=== PATIENT | male | born 1990 | race Two or more races ===

== ENCOUNTER 2020-11-13 16:19 | Inpatient (IN) ==
[2020-11-13] MEDS ORDERED: NS 0.9% 1000 ml BAG 1,000 ML IV ONE (19:26)
[2020-11-13] MEDS ORDERED: Ondansetron 4 mg VIAL 2 MG/ML 2 ml VIAL IV ONE (19:26)
[2020-11-13 20:05] LABS: Hematocrit 41 % (42-52); Mean Corpuscular HGB Conc 34 g/dL (31-36); Mean Corpuscular Hemoglobin 31 pg (27-31); Mean Corpuscular Volume 90 fL (80-94); Mean Platelet Volume 8.5 fL (7.4-10.4); Platelet Count 285 10^3/uL (150-450); Red Blood Count 4.59 10^6 /uL (4.18-5.48); Red Cell Distribution Width 12 % (10-15); White Blood Count 17.8 10^3/uL (3.5-10.8)
[2020-11-13 20:21] LABS: ALT 9 U/L (7-52); Albumin 4.1 g/dL (3.2-5.2); Albumin/Globulin Ratio 1.2 (1-3); Alkaline Phosphatase 103 U/L (34-104); BUN/Creatinine Ratio 15.1 (8-20); Blood Urea Nitrogen 11 mg/dL (6-24); C Reactive Protein 289.02 mg/L (<8.01); CO2 Carbon Dioxide 31 mmol/L (22-32); Calcium 9.3 mg/dL (8.6-10.3); Chloride 97 mmol/L (101-111); EGFR African American 153.7 (>60); Globulin 3.5 g/dL (2-4); Glucose 82 mg/dL (70-100); Lipase < 10 U/L (11.0-82.0); Sodium 133 mmol/L (135-145); Total Protein 7.6 g/dL (6.4-8.9)
[2020-11-13 20:45] LABS: ABS Eosinophils 0.1 10^3/ul (0-0.6); ABS Lymphocytes 1.3 10^3/ul (1.0-4.8); ABS Monocytes 2.3 10^3/ul (0-0.8); ABS Neutrophils 14.1 10^3/ul (1.5-7.7); Eosinophil % 0.3 %; Lymphocyte % 7.4 %
[2020-11-13 20:57] LABS: Anion Gap 5 mmol/L (2-11)
[2020-11-13] MEDS ORDERED: Iodixanol (CONTRAST) 320 MG/ML 100 ML SDV IV ONE (21:34)
[2020-11-13 21:59] LABS: Urine Appearance Clear; Urine Bilirubin Negative (Negative); Urine Blood Negative (Negative); Urine Color Yellow; Urine Glucose Negative (Negative); Urine Ketones Negative (Negative); Urine Nitrite Negative (Negative); Urine Protein Negative (Negative); Urine Specific Gravity 1.014 (1.002-1.030); Urine Urobilinogen Negative (Negative)
[2020-11-13] MEDS ORDERED: Morphine 4 MG/ML VIAL (1 ml) IV ONE (22:24)
[2020-11-13] MEDS ORDERED: Ciprofloxacin 400mg IVPREMIX 400 MG/200 ML BAG IVPB ONE (22:25)
[2020-11-13] MEDS ORDERED: metroNIDAZOLE IV 500 MG/100ML 500 MG/100 ML BAG IVPB ONE (22:30)
[2020-11-14] MEDS ORDERED: Lorazepam PYXIS KEY PRN (00:54)
[2020-11-14] MEDS ORDERED: LORazepam 2 mg VIAL 1 ml IV PUSH SCH (01:00)
[2020-11-14] MEDS ORDERED: Thiamine 100 MG/ML 2 ml VIAL 100 MG, Folic Acid IV 1 MG, Multiple Vitamin IV ADULT 10 M... IV ONE (02:00)
[2020-11-14] MEDS: HYDROmorphone 1 MG/1 ML SYRINGE IV SLOW PU PRN ×3 (03:05→15:30)
[2020-11-14] MEDS ORDERED: Midazolam 2 mg/2 ml VIAL 1 mg/ml 2 ml VIAL (2 mg) ONE (08:10)
[2020-11-14] MEDS ORDERED: fentaNYL 250 mcg/5 ml 50 MCG/ML 5 ml VIAL (250 MCG) ONE (08:10)
[2020-11-14] MEDS ORDERED: Rocuronium 50 mg VIAL 10 mg/ml 5 ml VIAL (50 mg) ONE ×2 (08:10→09:55)
[2020-11-14] MEDS ORDERED: Propofol 10 MG/ML 20 ML BTL ONE (08:10)
[2020-11-14] MEDS ORDERED: Lidocaine 2% PF 5 ML VIAL ONE (08:10)
[2020-11-14] MEDS ORDERED: Bupivacaine 0.25% SDV 30 ML ONE (08:53)
[2020-11-14] MEDS ORDERED: Midazolam 5 mg/5 ml VIAL 1 mg/ml 5 ml VIAL (5 mg) ONE (09:17)
[2020-11-14] MEDS ORDERED: Ketamine HCL 50 mg/ml 10 ml VIAL (500 MG) ONE (09:42)
[2020-11-14] MEDS ORDERED: Naloxone 0.4 mg VIAL 0.4 mg/ml 1 ml VIAL IV PRN (11:45)
[2020-11-14] MEDS ORDERED: fentaNYL 100 mcg/2 ml 50 MCG/ML VIAL ONE (11:47)
[2020-11-14] MEDS: fentaNYL 100 mcg/2 ml 50 MCG/ML VIAL IV PRN ×2 (11:49→11:54)
[2020-11-14] MEDS ORDERED: HYDROmorphone 1 MG/1 ML SYRINGE ONE (12:02)
[2020-11-14] MEDS: HYDROmorphone 1 MG/1 ML SYRINGE IV PRN ×3 (12:03→12:26)
[2020-11-14] MEDS: Lactated Ringers 1000 ml BAG 1,000 ML IV SCH ×2 (12:54→22:35)
[2020-11-14] MEDS: Ciprofloxacin 400mg IVPREMIX 400 MG/200 ML BAG IVPB SCH ×2 (12:56→22:32)
[2020-11-14] MEDS: metroNIDAZOLE IV 500 MG/100ML 500 MG/100 ML BAG IVPB SCH ×3 (12:59→23:51)
[2020-11-14] MEDS ORDERED: Morphine 2 MG/ML SYRINGE IV PRN (16:07)
[2020-11-14] MEDS ORDERED: Nicotine GUM 2MG FRUIT FLAVOR PO PRN (16:31)
[2020-11-14] MEDS: Nicotine PATCH 21 MG/24 HR PATCH TRANSDERM SCH (18:20)
[2020-11-14] MEDS ORDERED: Senna TAB 8.6 mg TAB PO PRN (21:25)
[2020-11-15 05:09] LABS: ABS Lymphocytes 0.8 10^3/ul (1.0-4.8); ABS Monocytes 1.2 10^3/ul (0-0.8); ABS Neutrophils 11.9 10^3/ul (1.5-7.7); Hematocrit 36 % (42-52); Hemoglobin 12.2 g/dL (14.0-18.0); Lymphocyte % 5.4 %; Mean Corpuscular HGB Conc 34 g/dL (31-36); Mean Corpuscular Hemoglobin 31 pg (27-31); Mean Corpuscular Volume 89 fL (80-94); Mean Platelet Volume 7.9 fL (7.4-10.4); Platelet Count 292 10^3/uL (150-450); Red Blood Count 3.99 10^6 /uL (4.18-5.48); Red Cell Distribution Width 13 % (10-15); White Blood Count 13.9 10^3/uL (3.5-10.8)
[2020-11-15 05:22] LABS: Calcium 8.6 mg/dL (8.6-10.3); EGFR African American 151.3 (>60); Potassium 3.9 mmol/L (3.5-5.0)
[2020-11-15] MEDS: Nicotine PATCH 21 MG/24 HR PATCH TRANSDERM SCH (07:52)
[2020-11-15] MEDS: Lactated Ringers 1000 ml BAG 1,000 ML IV SCH (07:56)
[2020-11-15] MEDS: metroNIDAZOLE IV 500 MG/100ML 500 MG/100 ML BAG IVPB SCH (08:00)
[2020-11-15 08:38] VITALS: BP 138/66
[2020-11-15] MEDS ORDERED: Multivitamins/Minerals TAB PO SCH (09:00)
== END 2020-11-15 10:30 | disposition home or self-care (01) ==
LOC: ED 16:19 → SSU 11-14 00:35
PROVIDERS: ADMIT Surgery; ATTEND Surgery Surgical Critical Care